=== PATIENT | female | born 1995 | race Caucasian/White ===

== ENCOUNTER 2016-10-14 11:09 | Inpatient (IN) | payer MEDICAID ==
[~2016-10-14] VITALS: Ht 160 cm; Wt 69.5 kg
[2016-10-14 11:34] VITALS: BP 129/70; PULSE 129; Ht 160 cm; Wt 69.5 kg
[2016-10-14] MEDS ORDERED: PRENAT PO (11:36)
[2016-10-14] MEDS ORDERED: LACTATED RINGER'S 1,000 ML IV SCH (12:33)
[2016-10-14] MEDS ORDERED: OXYTOCIN 30 UNITS/LR 500 ML IV PRN (13:00)
[2016-10-14] MEDS ORDERED: CARBOPROST 250 MCG INJ IM PRN (13:00)
[2016-10-14] MEDS ORDERED: OXYTOCIN 30 UNITS/LR 500 ML IV SCH ×2 (13:00→20:19)
[2016-10-14] MEDS ORDERED: MISOPROSTOL 200 MCG TAB PR PRN (13:00)
[2016-10-14] MEDS ORDERED: LIDOCAINE 1% (MPF) 30 ML INJ INJ PRN (13:00)
[2016-10-14] MEDS ORDERED: METHYLERGONOVINE 0.2 MG INJ IM PRN (13:00)
[2016-10-14] MEDS ORDERED: LACTATED RINGER'S 1,000 ML IV PRN (13:00)
[2016-10-14 14:11] LABS: BASOPHILS % 0.3 % (0.0-2.0); EOSINOPHILS % 0.3 % (0.0-7.0); HEMATOCRIT 37.4 % (37.0-47.0); HEMOGLOBIN 12.6 g/dl (12.0-16.0); LYMPHOCYTES # 1.2 10^3/ul (0.8-2.9); LYMPHOCYTES % 8.7 % (15.0-51.0); MEAN CORPUSCULAR HEMOGLOBIN 28.6 pg (29.0-33.0); MEAN CORPUSCULAR HGB CONC 33.7 g/dl (32.0-37.0); MEAN CORPUSCULAR VOLUME 84.8 fl (82.0-101.0); MEAN PLATELET VOLUME 12.8 fl (7.4-10.4); MONOCYTE # 1.3 10^3/ul (0.3-0.9); MONOCYTES % 9.1 % (0.0-11.0); NEUTROPHILS % 81.1 % (39.0-77.0); PLATELET COUNT 175 10^3/UL (140-415); RED BLOOD COUNT 4.41 10^6/ul (4.20-5.40); RED CELL DISTRIBUTION WIDTH 13.2 % (11.5-14.5); WHITE BLOOD COUNT 13.9 10^3/ul (4.8-10.8)
[2016-10-14 14:26] LABS: INR 0.88; PARTIAL THROMBOPLASTIN TIME 28.3 Sec (25.0-35.0); PROTIME 11.9 Sec (12.2-14.2); PT RATIO 0.9
[2016-10-14] MEDS: OXYTOCIN 30 UNITS/LR 500 ML IV SCH ×2 (17:31→18:03)
--- NOTE | 2016-10-14 17:31 | LDN ---
Date/Time of Note Date/Time of Note DATE: 10/14/16 TIME: 17:28 Delivery Summary Normal spontaneous vaginal delivery baby girl from OA position shoulders delivered without difficulty cord clamp after stopped pulsation placenta spontaneous expulsion inspected complete blood loss 200 mL patient sustained a small first-degree perineal laceration repaired with 3-0 chromic catgut Weeks of Gestation 37 weeks and 6 days Placenta Delivered: Spontaneously Meconium: none Episiotomy: No Perineal laceration: 1 Laceration repair: First-degree perineal laceration repaired with 3-0 chromic Anesthesia type: Local Estimated blood loss: 250 Sponge & Needle done & correct: Yes All needle counts correct: Yes Any foreign bodies felt in the: No Problems: Delivery Information Sex Sex: female Apgars 1 Minute: 9 5 Minute: 9 Suctioning Nose & mouth suctioned at mayela: Yes Umbilical Cord Umbilical cord with: 3 Vessels Cord presentations: nuchal cord Nuchal cord present X: 1 Cord Blood was obtained: Yes ANGELO BRANTLEY MD Oct 14, 2016 17:31
--- NOTE | 2016-10-14 17:36 | HP ---
Date/Time of Note Date/Time of Note DATE: 10/14/16 TIME: 17:32 OB - History Hx of Present Free Text/Dictation 21 years old female G2 [id number] EDC October [birth year] 2006 admitted to [facility] at 37 weeks and 6 days in labor pelvic examination on admission cervix 5 cm dilated 100% effaced vertex at -1 station heart category 1 Chief Complaint: Labor contraction Estimated Due Date: Oct 29, 2016 : 2 Para: 0 Spontaneous : 1 Care: Good Care Ultrasounds: Normal mid trimester US Obstetrical Complications: None Medical Complications: None Past Family/Social History * Past Medical, Surgical, Family and Obstetric Histories reviewed from chart. Rubella: immune GBS Status: Negative HBsAG: Negative OB Admission Exam Vital Signs Vital Signs Vital Signs Date Time Temp Pulse Resp B/P Pulse Ox O2 Delivery O2 Flow Rate FiO2 10/14/16 11:34 98.2 129 129/70 Physical Exam HEENT: WNL Heart: Rhythm Normal Lungs: Clear, Equal Abdomen: WNL Extremities: Normal Cervical Dilatation: 5cm Effacement: 100% Station: -2 Membranes: Ruptured Amniotic Fluid: Clear Heart Rate: 130's Decelerations: No Decelerations Varibility: Moderate Contractions on Admission: < 5 Minutes Apart Intensity: Moderate Last 72 hours Lab Results CBC & BMP 10/14/16 13:30 OB Assessment/Plan Reason for admission: other (Patient transferred from triage unit to L&D expecting management for delivery) ANGELO BRANTLEY MD Oct 14, 2016 17:36
[2016-10-14 19:45] VITALS: BP 126/79; PULSE 86; RESP 18
[2016-10-14] MEDS ORDERED: ONDANSETRON 4 MG INJ IV PRN (20:30)
[2016-10-14] MEDS ORDERED: DIBUCAINE 1% 30 GM OINT PR PRN (20:30)
[2016-10-14] MEDS ORDERED: WITCH HAZEL/GLYCERIN PAD PR PRN (20:30)
[2016-10-14] MEDS ORDERED: HYDROCODONE/APAP (5/325) TAB PO PRN ×2 (20:30)
[2016-10-14] MEDS ORDERED: OXYCODONE/ASPIRIN (4.88/325) TAB PO PRN ×2 (20:30)
[2016-10-14] MEDS ORDERED: BENZOCAINE 20% 56 ML SPRAY TOP PRN (20:30)
[2016-10-14] MEDS ORDERED: LANOLIN 7 GM TUBE TOP PRN (20:30)
[2016-10-14] MEDS ORDERED: ACETAMINOPHEN 325 MG TAB PO PRN (20:30)
[2016-10-14 21:00] VITALS: BP 124/78; PULSE 78; RESP 18
[2016-10-14] MEDS: SENNA/DOCUSATE NA (8.6MG/50MG) TAB PO SCH (23:06)
[2016-10-14] MEDS: IBUPROFEN 600 MG TAB PO SCH (23:17)
[2016-10-15 04:20] VITALS: BP 110/66; PULSE 78; RESP 18
[2016-10-15] MEDS: IBUPROFEN 600 MG TAB PO SCH ×4 (06:38→23:34)
[2016-10-15 08:00] VITALS: BP 102/59; PULSE 62; RESP 17
[2016-10-15] MEDS: SENNA/DOCUSATE NA (8.6MG/50MG) TAB PO SCH ×2 (09:23→20:58)
[2016-10-15 16:00] VITALS: BP 100/58; PULSE 74; RESP 19
--- NOTE | 2016-10-15 18:13 | PN ---
Date/Time of Note Date/Time of Note DATE: 10/15/16 TIME: 18:11 OB Subjective Subjective Subjective Post normal vaginal delivery day 1 Afebrile Vital signs are stable Abdomen soft Uterus firm Lochia normal Extremity Current Medications Medications (Trade) Dose Ordered Sig/Gareth Route PRN Reason Start Time Stop Time Status Last Admin Dose Admin Lactated Ringer's (Lr) 1,000 ml @ 125 mls/hr Q8H IV 10/14/16 12:33 10/14/16 20:22 DC 10/14/16 13:51 Lidocaine 30 ml 30 ml ONCE PRN INJ EPISIOTOMY/TEARING 10/14/16 13:00 10/14/16 20:22 DC Oxytocin/Lactated Ringer's 500 ml @ 125 mls/hr ONCE -MAY REPEAT X1 IV 10/14/16 13:00 10/14/16 20:22 DC 10/14/16 18:03 Oxytocin/Lactated Ringer's 500 ml @ 125 mls/hr ONCE IV 10/14/16 13:00 10/14/16 20:22 DC Lactated Ringer's 1,000 ml @ 2,000 mls/hr Q30M PRN IV PRE-EPIDURAL BOLUS 10/14/16 13:00 10/14/16 20:22 DC Oxytocin/Lactated Ringer's 500 ml @ 0 mls/hr ONCE PRN IV For Hemorrhage Management 10/14/16 13:00 10/14/16 20:22 DC Methylergonovine Maleate (Methergine) 0.2 mg ONCE PRN IM VAGINAL BLEEDING 10/14/16 13:00 10/14/16 20:22 DC Carboprost Tromethamine (Hemabate) 250 mcg ONCE PRN IM VAGINAL BLEEDING 10/14/16 13:00 10/14/16 20:22 DC Misoprostol 1000 mcg 1,000 mcg ONCE PRN [place] VAGINAL BLEEDING 10/14/16 13:00 10/14/16 20:22 DC Oxytocin/Lactated Ringer's 500 ml @ 125 mls/hr Q4H IV 10/14/16 20:19 10/15/16 04:18 DC Ibuprofen (Motrin) 600 mg Q6 PO 10/15/16 00:00 10/15/16 17:49 Acetaminophen (Tylenol Tab) 650 mg Q4H PRN PO PAIN LEVEL 1-5 10/14/16 20:30 Acetaminophen/ Hydrocodone Bitart ([place] (5/325)) 1 tab Q4H PRN PO PAIN LEVEL 1-5 10/14/16 20:30 Acetaminophen/ Hydrocodone Bitart ([place] (5/325)) 2 tab Q4H PRN PO PAIN LEVEL 6-10 10/14/16 20:30 Oxycodone/Aspirin (Percodan) 1 tab Q3H PRN PO PAIN LEVEL 1-5 10/14/16 20:30 Oxycodone/Aspirin (Percodan) 2 tab Q3H PRN PO PAIN LEVEL 6-10 10/14/16 20:30 Ondansetron HCl (Zofran Inj) 4 mg Q6H PRN IV NAUSEA AND/OR VOMITING 10/14/16 20:30 Senna/Docusate Sodium (Senokot-S) 1 tab BID PO 10/14/16 21:00 10/15/16 09:23 Witch Nettie/ Glycerin (Tucks Pads) 1 pad BEDSIDE MEDICATION PRN [place] HEMORRHOID/EPISIOTMY PAIN 10/14/16 20:30 10/14/16 23:06 Benzocaine (Dermoplast [place]) 1 spray BEDSIDE MEDICATION PRN TOP HEMORRHOID/EPISIOTMY PAIN 10/14/16 20:30 10/14/16 23:06 Dibucaine (Nupercainal) 1 applic BEDSIDE MEDICATION PRN [place] HEMORRHOID/EPISIOTMY PAIN 10/14/16 20:30 Lanolin (Teb-E-Eqlhom) 1 applic BEDSIDE MEDICATION PRN TOP BEDSIDE FOR DARLEEN TO NIPPLES 10/14/16 20:30 10/14/16 23:06 Measles/Mumps/ Rubella Vaccine Live (Mmr Ii Vaccine) 0.5 ml ONCE ONCE SC* 10/16/16 09:00 10/16/16 09:01 ANGELO King MD Oct 15, 2016 18:13
[2016-10-15 20:00] VITALS: BP 116/73; PULSE 75; RESP 18
[2016-10-16 03:45] VITALS: BP 107/53; PULSE 65
[2016-10-16] MEDS: IBUPROFEN 600 MG TAB PO SCH ×2 (05:50→11:57)
[2016-10-16 07:35] VITALS: BP 107/54; PULSE 68; RESP 16
[2016-10-16] MEDS ORDERED: MEASLES,MUMPS,RUBELLA VACCINE INJ SC* ONE (09:00)
[2016-10-16] MEDS: SENNA/DOCUSATE NA (8.6MG/50MG) TAB PO SCH (09:18)
[2016-10-16 10:00] LABS: BASOPHIL # 0.1 10^3/ul (0.0-0.1); BASOPHILS % 0.5 % (0.0-2.0); EOSINOPHILS # 0.2 10^3/ul (0.0-0.5); EOSINOPHILS % 1.6 % (0.0-7.0); HEMATOCRIT 32.9 % (37.0-47.0); HEMOGLOBIN 10.6 g/dl (12.0-16.0); LYMPHOCYTES # 1.8 10^3/ul (0.8-2.9); LYMPHOCYTES % 14.1 % (15.0-51.0); MEAN CORPUSCULAR HEMOGLOBIN 28.1 pg (29.0-33.0); MEAN CORPUSCULAR HGB CONC 32.2 g/dl (32.0-37.0); MEAN CORPUSCULAR VOLUME 87.3 fl (82.0-101.0); MEAN PLATELET VOLUME 11.9 fl (7.4-10.4); MONOCYTES % 7.5 % (0.0-11.0); NEUTROPHILS % 75.7 % (39.0-77.0); PLATELET COUNT 171 10^3/UL (140-415); RED BLOOD COUNT 3.77 10^6/ul (4.20-5.40); RED CELL DISTRIBUTION WIDTH 13.5 % (11.5-14.5); WHITE BLOOD COUNT 12.6 10^3/ul (4.8-10.8)
--- NOTE | 2016-10-16 10:06 | DS ---
Date/Time of Note Date/Time of Note DATE: 10/16/16 TIME: 10:03 Obstetrical Discharge Record Final Diagnosis Final Diagnosis: Term delivered Vaginal Delivery Obstetrical Delivery: Spontaneous Condition on Discharge Physical Assessment Voiding: Yes Bowel Movement: Yes Breast: Soft, non-tender Fundus: Firm Abdomen and Incision: Perineal laceration is healing well Laboratory Tests Test 10/16/16 09:31 White Blood Count 12.610^3/ul Red Blood Count 3.7710^6/ul Hemoglobin 10.6g/dl Hematocrit 32.9% Mean Corpuscular Volume 87.3fl Mean Corpuscular Hemoglobin 28.1pg Mean Corpuscular Hemoglobin Concent 32.2g/dl Red Cell Distribution Width 13.5% Platelet Count 24924^3/UL Mean Platelet Volume 11.9fl Neutrophils % 75.7% Lymphocytes % 14.1% Monocytes % 7.5% Eosinophils % 1.6% Basophils % 0.5% Nucleated Red Blood Cells % 0.0/100WBC Neutrophils # (Manual) 1010^3/ul Lymphocytes # 1.810^3/ul Monocytes # 1.010^3/ul Eosinophils # 0.210^3/ul Basophils # 0.110^3/ul Nucleated Red Blood Cells # 0.010^3/ul Current Medications Medications (Trade) Dose Ordered Sig/Gareth Route PRN Reason Start Time Stop Time Status Last Admin Dose Admin Lactated Ringer's (Lr) 1,000 ml @ 125 mls/hr Q8H IV 10/14/16 12:33 10/14/16 20:22 DC 10/14/16 13:51 Lidocaine 30 ml 30 ml ONCE PRN INJ EPISIOTOMY/TEARING 10/14/16 13:00 10/14/16 20:22 DC Oxytocin/Lactated Ringer's 500 ml @ 125 mls/hr ONCE -MAY REPEAT X1 IV 10/14/16 13:00 10/14/16 20:22 DC 10/14/16 18:03 Oxytocin/Lactated Ringer's 500 ml @ 125 mls/hr ONCE IV 10/14/16 13:00 10/14/16 20:22 DC Lactated Ringer's 1,000 ml @ 2,000 mls/hr Q30M PRN IV PRE-EPIDURAL BOLUS 10/14/16 13:00 10/14/16 20:22 DC Oxytocin/Lactated Ringer's 500 ml @ 0 mls/hr ONCE PRN IV For Hemorrhage Management 10/14/16 13:00 10/14/16 20:22 DC Methylergonovine Maleate (Methergine) 0.2 mg ONCE PRN IM VAGINAL BLEEDING 10/14/16 13:00 10/14/16 20:22 DC Carboprost Tromethamine (Hemabate) 250 mcg ONCE PRN IM VAGINAL BLEEDING 10/14/16 13:00 10/14/16 20:22 DC Misoprostol 1000 mcg 1,000 mcg ONCE PRN [place] VAGINAL BLEEDING 10/14/16 13:00 10/14/16 20:22 DC Oxytocin/Lactated Ringer's 500 ml @ 125 mls/hr Q4H IV 10/14/16 20:19 10/15/16 04:18 DC Ibuprofen (Motrin) 600 mg Q6 PO 10/15/16 00:00 10/16/16 05:50 Acetaminophen (Tylenol Tab) 650 mg Q4H PRN PO PAIN LEVEL 1-5 10/14/16 20:30 Acetaminophen/ Hydrocodone Bitart ([place] (5/325)) 1 tab Q4H PRN PO PAIN LEVEL 1-5 10/14/16 20:30 Acetaminophen/ Hydrocodone Bitart ([place] (5/325)) 2 tab Q4H PRN PO PAIN LEVEL 6-10 10/14/16 20:30 Oxycodone/Aspirin (Percodan) 1 tab Q3H PRN PO PAIN LEVEL 1-5 10/14/16 20:30 Oxycodone/Aspirin (Percodan) 2 tab Q3H PRN PO PAIN LEVEL 6-10 10/14/16 20:30 Ondansetron HCl (Zofran Inj) 4 mg Q6H PRN IV NAUSEA AND/OR VOMITING 10/14/16 20:30 Senna/Docusate Sodium (Senokot-S) 1 tab BID PO 10/14/16 21:00 10/16/16 09:18 Witch Nettie/ Glycerin (Tucks Pads) 1 pad BEDSIDE MEDICATION PRN [place] HEMORRHOID/EPISIOTMY PAIN 10/14/16 20:30 10/14/16 23:06 Benzocaine (Dermoplast [place]) 1 spray BEDSIDE MEDICATION PRN TOP HEMORRHOID/EPISIOTMY PAIN 10/14/16 20:30 10/14/16 23:06 Dibucaine (Nupercainal) 1 applic BEDSIDE MEDICATION PRN [place] HEMORRHOID/EPISIOTMY PAIN 10/14/16 20:30 Lanolin ([id number]-[id number]) 1 applic BEDSIDE MEDICATION PRN TOP BEDSIDE FOR DARLEEN TO NIPPLES 10/14/16 20:30 10/14/16 23:06 Measles/Mumps/ Rubella Vaccine Live (Mmr Ii Vaccine) 0.5 ml ONCE ONCE SC* 10/16/16 09:00 10/16/16 09:02 DC Episiotomy: Laboratory Tests Test 10/16/16 09:31 White Blood Count 12.610^3/ul Red Blood Count 3.7710^6/ul Hemoglobin 10.6g/dl Hematocrit 32.9% Mean Corpuscular Volume 87.3fl Mean Corpuscular Hemoglobin 28.1pg Mean Corpuscular Hemoglobin Concent 32.2g/dl Red Cell Distribution Width 13.5% Platelet Count 72782^3/UL Mean Platelet Volume 11.9fl Neutrophils % 75.7% Lymphocytes % 14.1% Monocytes % 7.5% Eosinophils % 1.6% Basophils % 0.5% Nucleated Red Blood Cells % 0.0/100WBC Neutrophils # (Manual) 1010^3/ul Lymphocytes # 1.810^3/ul Monocytes # 1.010^3/ul Eosinophils # 0.210^3/ul Basophils # 0.110^3/ul Nucleated Red Blood Cells # 0.010^3/ul Current Medications Medications (Trade) Dose Ordered Sig/Gareth Route PRN Reason Start Time Stop Time Status Last Admin Dose Admin Lactated Ringer's (Lr) 1,000 ml @ 125 mls/hr Q8H IV 10/14/16 12:33 10/14/16 20:22 DC 10/14/16 13:51 Lidocaine 30 ml 30 ml ONCE PRN INJ EPISIOTOMY/TEARING 10/14/16 13:00 10/14/16 20:22 DC Oxytocin/Lactated Ringer's 500 ml @ 125 mls/hr ONCE -MAY REPEAT X1 IV 10/14/16 13:00 10/14/16 20:22 DC 10/14/16 18:03 Oxytocin/Lactated Ringer's 500 ml @ 125 mls/hr ONCE IV 10/14/16 13:00 10/14/16 20:22 DC Lactated Ringer's 1,000 ml @ 2,000 mls/hr Q30M PRN IV PRE-EPIDURAL BOLUS 10/14/16 13:00 10/14/16 20:22 DC Oxytocin/Lactated Ringer's 500 ml @ 0 mls/hr ONCE PRN IV For Hemorrhage Management 10/14/16 13:00 10/14/16 20:22 DC Methylergonovine Maleate (Methergine) 0.2 mg ONCE PRN IM VAGINAL BLEEDING 10/14/16 13:00 10/14/16 20:22 DC Carboprost Tromethamine (Hemabate) 250 mcg ONCE PRN IM VAGINAL BLEEDING 10/14/16 13:00 10/14/16 20:22 DC Misoprostol 1000 mcg 1,000 mcg ONCE PRN [place] VAGINAL BLEEDING 10/14/16 13:00 10/14/16 20:22 DC Oxytocin/Lactated Ringer's 500 ml @ 125 mls/hr Q4H IV 10/14/16 20:19 10/15/16 04:18 DC Ibuprofen (Motrin) 600 mg Q6 PO 10/15/16 00:00 10/16/16 05:50 Acetaminophen (Tylenol Tab) 650 mg Q4H PRN PO PAIN LEVEL 1-5 10/14/16 20:30 Acetaminophen/ Hydrocodone Bitart ([place] (5/325)) 1 tab Q4H PRN PO PAIN LEVEL 1-5 10/14/16 20:30 Acetaminophen/ Hydrocodone Bitart ([place] (5/325)) 2 tab Q4H PRN PO PAIN LEVEL 6-10 10/14/16 20:30 Oxycodone/Aspirin (Percodan) 1 tab Q3H PRN PO PAIN LEVEL 1-5 10/14/16 20:30 Oxycodone/Aspirin (Percodan) 2 tab Q3H PRN PO PAIN LEVEL 6-10 10/14/16 20:30 Ondansetron HCl (Zofran Inj) 4 mg Q6H PRN IV NAUSEA AND/OR VOMITING 10/14/16 20:30 Senna/Docusate Sodium (Senokot-S) 1 tab BID PO 10/14/16 21:00 10/16/16 09:18 Witch Nettie/ Glycerin (Tucks Pads) 1 pad BEDSIDE MEDICATION PRN [place] HEMORRHOID/EPISIOTMY PAIN 10/14/16 20:30 10/14/16 23:06 Benzocaine (Dermoplast [place]) 1 spray BEDSIDE MEDICATION PRN TOP HEMORRHOID/EPISIOTMY PAIN 10/14/16 20:30 10/14/16 23:06 Dibucaine (Nupercainal) 1 applic BEDSIDE MEDICATION PRN [place] HEMORRHOID/EPISIOTMY PAIN 10/14/16 20:30 Lanolin (Ehf-A-Hnmsin) 1 applic BEDSIDE MEDICATION PRN TOP BEDSIDE FOR DARLEEN TO NIPPLES 10/14/16 20:30 10/14/16 23:06 Measles/Mumps/ Rubella Vaccine Live (Mmr Ii Vaccine) 0.5 ml ONCE ONCE SC* 10/16/16 09:00 10/16/16 09:02 DC Calf Tenderness: No Patient Condition: Good SHAWNA CAMPOS MD Oct 16, 2016 10:06
== END 2016-10-16 15:05 | disposition home or self-care (01) | DRG 775 ==
LOC: OBT 11:09 → L-D 11:10 → OBT 12:39 → L-D 12:40 → PP1 19:38
PROVIDERS: ADMIT Obstetrics & Gynecology; ATTEND Obstetrics & Gynecology
PROC: 10E0XZZ Delivery of Products of Conception, External Approach (ICD-10-PCS; principal; 2016-10-14)
PROC: 0HQ9XZZ Repair Perineum Skin, External Approach (ICD-10-PCS; 2016-10-14)
PROC: 3E033VJ Introduction of Other Hormone into Peripheral Vein, Percutaneous Approach (ICD-10-PCS; 2016-10-14)
DX: O69.81X0 Labor and delivery complicated by cord around neck, without compression, not applicable or unspecified (principal); O70.0 First degree perineal laceration during delivery; Z3A.37 37 weeks gestation of pregnancy; Z37.0 Single live birth
CPT/HCPCS: 84112; 85025; 85610; 85730; 86592; 86900; 86901; 87340; G0463; J2590; J7120